=== PATIENT | male | born 1960 | race Native Hawaiian/Other Pacific Islander ===

== ENCOUNTER 2025-07-30 07:26 | Outpatient (AMB) | payer BC, SELFPAY ==
--- NOTE | 2025-07-30 07:26 | A.PHYSOV_ITS ---
Vital Signs 07/30/25 07:48 Height 5 ft 8.5 in Weight 173 lb BMI 25.9 Intake Visit Reasons: NPV SMA Ref-neck pain Intake Note: Patient is a 64 year old male in office today as new patient for neck pain. Allergies Penicillins Allergy (Unknown, Verified 07/30/25 07:30) Unknown HPI Comments Details: History of Present Illness The patient is a 64 year old male presenting with neck pain and tension. He reports that the neck tension has been present for close to a year. Previously, he experienced associated headaches in the back of his head, but those have since resolved. 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 The patient describes the pain as generally not severe, but he experiences periodic exacerbations. About two months ago, he had a severe episode that interfered with his sleep, as he could not lay his head on a pillow without pain, though this has resolved. He denies pain radiating down his arms but has had a couple of episodes of transient arm numbness, which were not bothersome. He hears cracking in his neck, which is a new development with age. For treatment, he has not had physical therapy but takes aexw-ffi-etckove ibuprofen approximately once a week. His past medical history is significant for interstitial lung disease, which led to his early snf, as well as arthritis in his knees, high cholesterol, and high blood pressure. 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 He denies any kidney or stomach issues and is not on blood thinners. Imaging studies include cervical spine x-rays from April 24, 2025, which showed moderate degenerative changes at C5-C7, and thoracic spine x-rays from March 21, 2021, which showed mild to moderate multilevel degenerative changes, particularly at T9-T11. Pain Description - Onset and Timing: The patient reports the onset of neck tension was nearly a year ago. - Quality and Character: The patient describes the sensation as neck tension and audible cracking, which is generally not severe, but he has experienced intermittent exacerbations. - Primary Location: The pain is located in his neck. - Associated Symptoms: He previously had bilateral headaches in the back of his head, which have since resolved, and has experienced a couple of episodes of transient arm numbness. - Exacerbating Factors: A flare-up about two months ago was severe enough to interfere with sleep, making it painful to lay his head on a pillow. - Relieving Factors: The severe flare-up resolved on its own over time, and he currently uses rphe-dul-xuwfudb ibuprofen occasionally. - Interference with Function: The pain interfered with sleep during a flare-up two months ago. Results - Cervical Spine X-ray (04/24/2025): Showed moderate degenerative changes at the C5 through C7 levels. - Thoracic Spine X-ray (03/21/2021): Showed mild to moderate multilevel degenerative changes, particularly at the T9-T10 and T10-T11 levels. 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 - Neurological: Reports a history of resolved bilateral headaches in the back of the head and a few episodes of transient arm numbness. Denies pain radiating down the arms. - Respiratory: Reports a history of interstitial lung disease. - Genitourinary: Denies loss of bowel or bladder control. Physical Exam Exam Exam: Physical Exam - Neck: Tenderness on palpation on one side. Audible crepitus noted with movement. Passive range of motion elicited a stretching sensation without pain. Slightly restricted rotation and extension of cervical spine. Spurling maneuver was negative. Lhermitte's sign was negative. Neurological examination was nonfocal. Patient demonstrated no upper motor neuron signs. Palpatory examination reveals tenderness with palpation over upper and mid cervical facet joints on both sides, worse on the right side. Vital Signs: BMI result Body Mass Index 25.9 Assessment & Plan Assessment & Plan (1) Neck pain: Code(s): M54.2 - Cervicalgia Category: Medical (2) Spondylosis of cervical region without myelopathy or radiculopathy: Code(s): M47.812 - Spondylosis without myelopathy or radiculopathy, cervical region Category: Medical (3) Cervicocranial syndrome: Code(s): M53.0 - Cervicocranial syndrome Category: Medical Plan Pain Management - Affect: The patient states the neck pain is not that bad and he is primarily at the visit due to his primary care doctor's concern, though a past exacerbation did interfere with his sleep. - Analgesia: He takes peps-wwa-fxmxzxy ibuprofen intermittently, about once a week, for his pain. - Adverse Effects: No adverse effects from pain medication were discussed. - Activities of Daily Living: A severe flare-up two months ago impacted his ability to sleep comfortably. - Aberrant Drug-Related Behaviors: No aberrant drug-related behaviors were noted. Plan Patient was informed and verbally consented to the use of an ambient scribe for clinic note documentation during this visit. 1. Cervicalgia And Cervical Spondylosis The patient's neck symptoms are attributed to degenerative lopz-onn-pfyw arthritis, as supported by his imaging findings. Given the current low severity of symptoms, aggressive treatments such as surgery or injections are not indicated. Physical therapy was discussed as a helpful option. For management of future exacerbations, the patient was advised he can take three untb-tdl-snyjvdz ibuprofen pills three times a day for up to a week. A prescription for prednisone was offered to have on hand for severe flare-ups, but the patient deferred and will call if needed. Recommended daily supplementation with 2000 mg of turmeric containing black pepper, taken as two servings a day, for its anti- inflammatory effects. The patient was cleared to perform bench press exercises, as the neck remains in a supported, neutral position, but was advised to avoid activities involving neck hyperextension or those that cause discomfort. Discussion Notes I explained to the patient that his neck symptoms are related to aiaq-mis-kgpr arthritis, which is confirmed by his imaging. I reassured him that neither surgery nor injections are needed at this time. We discussed a conservative management plan, including the option of physical therapy and management strategies for potential flare-ups. For flare-ups, I advised that he can take a short course of high-dose snbt-rqi-ykyukos ibuprofen (three pills, three times daily for about a week), as he has no contraindications. I offered a prescription for prednisone for severe exacerbations, but we agreed he would call the office if this becomes necessary. I recommended daily use of a turmeric supplement with black pepper (2000 mg daily) for its anti-inflammatory properties. I informed him that bench pressing is safe for his neck, but he should avoid exercises that cause overextension or discomfort. I advised him to return if needed. Patient Instructions - For flare-ups of neck pain, you can take three qxhf-xky-mzcahlo ibuprofen pills together, three times a day, for about a week. - Call our office if your pain becomes severe and you feel you need a stronger medication like prednisone. - Take a turmeric supplement daily to help with inflammation. A dose of 2000 mg per day (split into two doses, morning and night) is recommended. Make sure it contains black pepper. - Physical therapy may be helpful for your neck tension. - It is safe to perform bench press exercises. Avoid activities that bend your neck far backward or cause pain. - Please seek emergency care if you ever lose control of your bowels or bladder. Coding Level of Care Code New Pt Level 4 (94838) Add On Problem Visit Only Diagnoses Neck pain M54.2 Spondylosis of cervical region without myelopathy or radiculopathy M47.812 Cervicocranial syndrome M53.0
--- OUTSIDE RECORDS SUMMARY | 2025-07-30 07:29 | XMS_ITS | Clinical Summary ---
Author Organization [facility] Health Address [address] [place] [address] Care Team Providers Care Kosher Sealer Name Role Phone Unavailable Primary Care Provider Unavailabl e Social History Tobacco Use Types Packs/Day Years Used Date Smoking Tobacco: Never Assessed Sex and Gender Information Value Date Recorded Sex Assigned at Not on file Legal Sex Male 9:15 PM PST Gender Identity Not on file Sexual Orientation Not on file Plan of Treatment Not on file
--- OUTSIDE RECORDS SUMMARY | 2025-07-30 07:29 | XMS_ITS | Encounter Summary ---
Author Organization [facility] Health Address [address] [place] [address] Care Team Providers Care Trimmer Machine Name Role Phone Unavailable Primary Care Provider Unavailabl e Prior Encounters Date Type Department Care Team Description 09/01/2019 Converted CPS Chart Documents [facility] [address] [place] [id number] <No scans attached> 09/01/2019 Converted 13x Documents [facility] [address] [place] [phone] <No scans attached> Plan of Treatment Not on file Procedures Procedure Name Priority Date/Time Associated Diagnosis Comments MISSED APPOINTMENT Routine 04/22/2019 12 :00 AM PDT PERIO MAINTENANCE Routine 01/08/2019 12: 00 AM PDT ORAL HYGIENE INSTRUCTIONS Routine 2018 12:00 AM PDT TOPICAL APPLICATION OF FLUORIDE VARNISH Routine 01/08/2019 12:00 AM PDT 15 B COMPOSITE FILLING Routine 9 12:00 AM PDT 14 B COMPOSITE FILLING Routine 9 12:00 AM PDT 13 B COMPOSITE FILLING Routine 9 12:00 AM PDT 5 B COMPOSITE FILLING Routine 01/08/2019 12:00 AM PDT 3 B COMPOSITE FILLING Routine 01/08/2019 12:00 AM PDT 2 B COMPOSITE FILLING Routine 01/08/2019 12:00 AM PDT PERIODIC ORAL EVALUATION - ESTABLISHED PATIENT Routine 09/16/2018 12:00 AM PST PERIO MAINTENANCE Routine 09/16/2018 12: 00 AM PST ORAL HYGIENE INSTRUCTIONS Routine 2018 12:00 AM PST TOPICAL APPLICATION OF FLUORIDE VARNISH Routine 09/16/2018 12:00 AM PST OFFICE VISIT FOR OBSERVATION (DURING REGULARLY SCHEDULED HOURS) - NO OTHER SERVICES PERFORMED Routine 06/13/2018 12:00 AM PDT PERIO MAINTENANCE Routine 05/28/2018 12: 00 AM PDT ORAL HYGIENE INSTRUCTIONS Routine 2017 12:00 AM PDT 7 REPLACE MISSING OR BROKEN TEETH - PARTIAL DENTURE - PER TOOTH Routine 05/22/2018 12:00 AM PDT 7 LIMITED ORAL EVALUATION - PROBLEM FOCUSED Routine 05/22/2018 12:00 AM PDT PERIO MAINTENANCE Routine 02/20/2018 12: 00 AM PDT ORAL HYGIENE INSTRUCTIONS Routine 2017 12:00 AM PDT TOPICAL APPLICATION OF FLUORIDE EXCLUDING VARNISH Routine 02/20/2018 12:00 AM PDT PERIODIC ORAL EVALUATION - ESTABLISHED PATIENT Routine 11/12/2017 12:00 AM PDT PERIO MAINTENANCE Routine 11/12/2017 12: 00 AM PDT ORAL HYGIENE INSTRUCTIONS Routine 2017 12:00 AM PDT TOPICAL APPLICATION OF FLUORIDE VARNISH Routine 11/12/2017 12:00 AM PDT CANCELLED APPOINTMENT Routine 06/25/2017 12:00 AM PST BITEWINGS - FOUR RADIOGRAPHIC IMAGES Routine 04/30/2017 12:00 AM PDT ADDITIONAL X-RAY Routine 04/30/2017 12:0 0 AM PDT ADDITIONAL X-RAY Routine 04/30/2017 12:0 0 AM PDT ADDITIONAL X-RAY Routine 04/30/2017 12:0 0 AM PDT ADDITIONAL X-RAY Routine 04/30/2017 12:0 0 AM PDT ADDITIONAL X-RAY Routine 04/30/2017 12:0 0 AM PDT SINGLE X-RAY Routine 04/30/2017 12:00 AM PDT PERIO MAINTENANCE Routine 02/16/2017 12: 00 AM PDT ORAL HYGIENE INSTRUCTIONS Routine 2016 12:00 AM PDT LIMITED ORAL EVALUATION - PROBLEM FOCUSED Routine 01/10/2017 12:00 AM PDT COMPREHENSIVE PERIODONTAL EVALUATION - NEW OR ESTABLISHED PATIENT Routine 01/10/2017 12:00 AM PDT PERIO MAINTENANCE Routine 10/13/2016 12: 00 AM PST ORAL HYGIENE INSTRUCTIONS Routine 2016 12:00 AM PST BITEWINGS - FOUR RADIOGRAPHIC IMAGES Routine 10/13/2016 12:00 AM PST ADDITIONAL X-RAY Routine 10/13/2016 12:0 0 AM PST ADDITIONAL X-RAY Routine 10/13/2016 12:0 0 AM PST ADDITIONAL X-RAY Routine 10/13/2016 12:0 0 AM PST ADDITIONAL X-RAY Routine 10/13/2016 12:0 0 AM PST ADDITIONAL X-RAY Routine 10/13/2016 12:0 0 AM PST SINGLE X-RAY Routine 10/13/2016 12:00 AM PST TREATMENT OF COMPLICATIONS (POST-SURGICAL) - UNUSUAL CIRCUMSTANCES, BY REPORT Routine 09/27/2016 12:00 AM PST 30 GUIDED TISSUE REGENERATION, NATURAL TEETH - RESORBABLE BARRIER, PER SITE Routine 09/12/2016 12:00 AM PST 2 GUIDED TISSUE REGENERATION, NATURAL TEETH - RESORBABLE BARRIER, PER SITE Routine 09/12/2016 12:00 AM PST 30 BONE REPLACEMENT GRAFT RETAINED NATURAL TOOTH FIRST SITE IN QUADRANT Routine 09/12/2016 12:00 AM PST 2 BONE REPLACEMENT GRAFT RETAINED NATURAL TOOTH FIRST SITE IN QUADRANT Routine 09/12/2016 12:00 AM PST 3 UR OSSEOUS SURGERY FOUR OR MORE CONTIGUOUS TEETH Routine 09/12/2016 12:00 AM PST 30 LR OSSEOUS SURGERY FOUR OR MORE CONTIGUOUS TEETH Routine 09/12/2016 12:00 AM PST COMPREHENSIVE PERIODONTAL EVALUATION - NEW OR ESTABLISHED PATIENT Routine 09/12/2016 12:00 AM PST PERIO MAINTENANCE Routine 07/05/2016 12: 00 AM PST ORAL HYGIENE INSTRUCTIONS Routine 2015 12:00 AM PST ADJUST PARTIAL DENTURE - MANDIBULAR Routine 05/23/2016 12:00 AM PDT TREATMENT OF COMPLICATIONS (POST-SURGICAL) - UNUSUAL CIRCUMSTANCES, BY REPORT Routine 05/23/2016 12:00 AM PDT TREATMENT OF COMPLICATIONS (POST-SURGICAL) - UNUSUAL CIRCUMSTANCES, BY REPORT Routine 04/21/2016 12:00 AM PDT LIMITED ORAL EVALUATION - PROBLEM FOCUSED Routine 04/14/2016 12:00 AM PDT INHALATION ADMINISTRATION OF NITROUS OXIDE/ANALGESIA, ANXIOLYSIS Routine 04/14/2016 12:00 AM PDT 18 EXTRACTION, ERUPTED TOOTH REQUIRING REMOVAL OF BONE AND/OR SECTIONING OF TOOTH Routine 04/14/2016 12:00 AM PDT 7 EXTRACTION, ERUPTED TOOTH REQUIRING REMOVAL OF BONE AND/OR SECTIONING OF TOOTH Routine 04/14/2016 12:00 AM PDT UL PERIODONTAL SCALING AND ROOT PLANING - FOUR OR MORE TEETH PER QUADRANT Routine 03/31/2016 12:00 AM PDT LL PERIODONTAL SCALING AND ROOT PLANING - FOUR OR MORE TEETH PER QUADRANT Routine 03/31/2016 12:00 AM PDT ORAL HYGIENE INSTRUCTIONS Routine 2015 12:00 AM PDT LL AARON DECON/QD Routine 03/31/2016 12:00 AM PDT UL AARON DECON/QD Routine 03/31/2016 12:00 AM PDT UL ANTIBACT IRR/QUAD Routine 03/31/2016 12:00 AM PDT LL ANTIBACT IRR/QUAD Routine 03/31/2016 12:00 AM PDT UR PERIODONTAL SCALING AND ROOT PLANING - FOUR OR MORE TEETH PER QUADRANT Routine 03/28/2016 12:00 AM PDT LR PERIODONTAL SCALING AND ROOT PLANING - FOUR OR MORE TEETH PER QUADRANT Routine 03/28/2016 12:00 AM PDT ORAL HYGIENE INSTRUCTIONS Routine 2015 12:00 AM PDT LR AARON DECON/QD Routine 03/28/2016 12:00 AM PDT UR AARON DECON/QD Routine 03/28/2016 12:00 AM PDT UR ANTIBACT IRR/QUAD Routine 03/28/2016 12:00 AM PDT LR ANTIBACT IRR/QUAD Routine 03/28/2016 12:00 AM PDT 18 MANDIBULAR PARTIAL DENTURE RESIN BASE Routine 03/22/2016 12:00 AM PDT 7 MAXILLARY PARTIAL DENTURE RESIN BASE Routine 03/22/2016 12:00 AM PDT 18 MANDIBULAR PARTIAL DENTURE RESIN BASE Routine 03/22/2016 12:00 AM PDT 7 MAXILLARY PARTIAL DENTURE RESIN BASE Routine 03/22/2016 12:00 AM PDT COMPREHENSIVE ORAL EVALUATION - NEW OR ESTABLISHED PATIENT Routine 03/22/2016 12:00 AM PDT PANORAMIC RADIOGRAPHIC IMAGE Routine 03/22/2016 12:00 AM PDT INTRAORAL - COMPREHENSIVE SERIES OF RADIOGRAPHIC IMAGES Routine 03/22/2016 12:00 AM PDT INTRAORAL PHOTO Routine 03/22/2016 12:00 AM PDT INTRAORAL PHOTO Routine 03/22/2016 12:00 AM PDT INTRAORAL PHOTO Routine 03/22/2016 12:00 AM PDT INTRAORAL PHOTO Routine 03/22/2016 12:00 AM PDT Visit Diagnoses Not on file
[2025-07-30 07:48] VITALS: BMI 25.9
== END 2025-07-30 07:50 | disposition home or self-care (01) ==
LOC: HO.HPHYS 07:26
PROVIDERS: Visit Provider Physical Medicine & Rehabilitation
DX: M54.2 Cervicalgia (principal); M47.812 Spondylosis without myelopathy or radiculopathy, cervical region; M53.0 Cervicocranial syndrome
CPT/HCPCS: 99204